=== PATIENT | male | born 1980 | race Caucasian/White ===

== ENCOUNTER 2018-04-04 14:53 | Emergency (ER) | payer SELFPAY ==
[2018-04-04] MEDS ORDERED: HYDROcodone/ACETAMIN 5-325 MG* 1 TAB PO ONE (15:18)
--- NOTE | 2018-04-04 16:02 | RAD ---
INDICATION: Right knee injury. TECHNIQUE: 4 views of the right knee were obtained. FINDINGS: The bones are in normal alignment. No joint effusion or fracture is seen. Joint spaces appear maintained. IMPRESSION: NO EVIDENCE FOR FRACTURE.
--- NOTE | 2018-04-04 16:03 | RAD ---
INDICATION: Right shoulder injury. TECHNIQUE: 4 views of the right shoulder were obtained. FINDINGS: The bones are in normal alignment. No fracture is seen. Joint spaces appear maintained. IMPRESSION: NO EVIDENCE OF FRACTURE.
--- NOTE | 2018-04-04 16:10 | RAD ---
INDICATION: Right rib injury. COMPARISON: Comparison is made with a prior chest x-ray study from July 10, 2010. TECHNIQUE: 4 views of the right ribs and dual-energy PA views of the chest were obtained. FINDINGS: On one view there is suggestion of cortical irregularity in the anterior right fourth rib suggestive of a nondisplaced fracture. The heart is within normal limits in size. The lungs are clear. There is no evidence for pneumothorax or pleural effusion. IMPRESSION: PROBABLE NONDISPLACED FRACTURE OF THE RIGHT ANTERIOR FOURTH RIB.
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
[2018-04-04 16:41] VITALS: BP 123/83
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
== END 2018-04-04 16:37 | disposition home or self-care (01) ==
LOC: ED 14:53
DX: S80.01XA Contusion of right knee, initial encounter (principal); S22.31XA Fracture of one rib, right side, initial encounter for closed fracture; V49.9XXA Car occupant (driver) (passenger) injured in unspecified traffic accident, initial encounter; Y92.410 Unspecified street and highway as the place of occurrence of the external cause; R03.0 Elevated blood-pressure reading, without diagnosis of hypertension; F17.210 Nicotine dependence, cigarettes, uncomplicated; Z85.47 Personal history of malignant neoplasm of testis; Z88.5 Allergy status to narcotic agent
CPT/HCPCS: 99282